=== PATIENT | female | born 2000 | race Caucasian/White ===

== ENCOUNTER → 2019-12-10 13:27 | Outpatient (BNVA) | payer SELFPAY | PROVIDERS: Family Provider Orthopaedic Surgery; PCP Orthopaedic Surgery; Visit Provider Nurse Practitioner | DX: N91.2 Amenorrhea, unspecified (principal); R10.9 Unspecified abdominal pain | CPT/HCPCS: 81025 ==

== ENCOUNTER 2021-07-24 12:16 | Outpatient (CLI) | payer SELFPAY ==
[2021-07-27 13:28] LABS: Quantiferon Mitogen >10.00 IU/mL; Quantiferon Nil 0.01 IU/mL; Quantiferon TB Gold NEGATIVE (NEGATIVE)
== END 2021-07-24 12:17 | disposition home or self-care (01) ==
LOC: LAB 12:22
PROVIDERS: Family Provider Orthopaedic Surgery; PCP Orthopaedic Surgery; Visit Provider Clinical Nurse Specialist Adult Health
DX: Z11.1 Encounter for screening for respiratory tuberculosis (principal)
CPT/HCPCS: 36415; 86480